=== PATIENT | female | born 1940 | race Caucasian/White ===

== ENCOUNTER 2025-05-26 08:26 | Outpatient (AMB) | payer MEDICARE, SELFPAY ==
--- OUTSIDE RECORDS SUMMARY | 2025-05-26 08:30 | XMS_ITS | Clinical Summary ---
Author Organization [facility] ity Address [address] [place] [address] Care Team Providers Care Cheesemaker Helper Name Role Phone Abigail Tobar MD Primary Care Provider [phone] Social History Tobacco Use Types Packs/Day Years Used Date Smoking Tobacco: Never Smokeless Tobacco: Never Alcohol Use Standard Drinks/Week Comments Yes 1 (1 standard drink = 0.6 oz pur e alcohol) Comments Unknown Sex and Gender Information Value Date Recorded Sex Assigned at Not on file Legal Sex Female 5:25 PM EST Gender Identity Not on file Sexual Orientation Not on file Obstetrics History Last Filed Vital Signs Vital Sign Reading Time Taken Comments Blood Pressure 112/64 09/11/2022 1:25 PM EDT Sit ting L Arm Pulse 74 09/11/2022 1:25 PM EDT Temperature - - Respiratory Rate - - Oxygen Saturation - - Inhaled Oxygen Concentration - - Weight 61.2 kg (135 lb) 04/21/2024 9:23 AM EDT Height 162.6 cm (5' 4 ) 04/21/2024 9:23 AM EDT Body Mass Index 23.17 04/21/2024 9:23 AM EDT Plan of Treatment Health Maintenance Due Date Last Done Comments DTaP,Tdap,and Td Vaccines (1 - Tdap) 1959 Hepatitis A Vaccines (1 of 2 - Risk 2-dose series) 1957 Pneumococcal Vaccine: 50+ Ye ars (1 of 1 - PCV) 1988 Zoster Vaccines (1 of 2) 1988 Hepatitis B Vaccines (1 of 3 - Risk 3-dose series) 1998 RSV Immunization Adult Patie nts (1 - 1-dose 75+ series) 2013 Cholesterol Screening (Lipid Panel) 10/19/2022 Falls Risk Assessment 10/19/2022 Osteoporosis Screening (Bone Density Screening) 10/19/2022 Social Influencers of Health Screening 10/19/2022 COVID-19 Vaccine (1 - 2023-2 5 season) 2024 Depression Screening 11/10/2024 Influenza Vaccine (#1) 2025 HIB Vaccines Aged Out No longer eligi ble based on patient's age to complete this topic HPV Vaccines Aged Out No longer eligi ble based on patient's age to complete this topic IPV Vaccines Aged Out No longer eligi ble based on patient's age to complete this topic MMR Vaccines Aged Out No longer eligi ble based on patient's age to complete this topic Meningococcal ACWY Vaccine Aged Out N o longer eligible based on patient's age to complete this topic Meningococcal B Vaccine Aged Out No l onger eligible based on patient's age to complete this topic RSV Immunization Patients Un glynn 20 months Aged Out No longer eligible b ased on patient's age to complete this topic Varicella Vaccines Aged Out No longer eligible based on patient's age to complete this topic Care Teams Cheesemaker Helper Relationship Specialty Start Date End Date Abigail Tobar MD [address] [place] [address] [place] [address] PCP - General 06/27/22
--- NOTE | 2025-05-26 08:40 | MHC.OFFVIS ---
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 [facility] Medical History (Updated 05/26/25 @ 08:48 by Paula Guerrier MD) Migraine H/O alcohol abuse Cerebral vascular disease Intracranial carotid stenosis, right Basilar artery stenosis Hypertension Dupuytrens contracture Stroke Insomnia RLS (restless legs syndrome) Review of Systems Const Details: Constitutional:?No fever, chills, fatigue, weight loss, or night sweats. HEENT:?No headache, vision changes, hearing loss, nasal congestion, sore throat. Neurological:?No dizziness, syncope, seizures, numbness, tingling, weakness, tremors, memory loss. Psychiatric:?No anxiety, depression, mood swings, sleep disturbance, or hallucinations. Endocrine:?No heat/cold intolerance, polydipsia, polyuria, or hair/skin changes. Hematologic/Lymphatic:?No easy bruising, bleeding, or lymphadenopathy. Integumentary (Skin):?No rash, lesions, itching, or color changes. ? Physical Exam Neuro Other: Mental Status: Alert and oriented to person, place, and time. Normal attention. Normal spontaneous speech, fluency, and comprehension. No obvious issues with mood and memory. Affect is appropriate. Cranial Nerves: CN II: Visual velasco full to confrontation, visual acuity intact. CN III, IV, : Pupils equal, round, reactive to light and accommodation. Extraocular movements are normal. CN V: Facial sensation is normal. CN VII: Facial movements symmetrical. CN VIII: Hearing intact to bedside conversation is normal. CN IX, X: Palate elevates symmetrically. CN XI: Shoulder shrug and head turn symmetrical. CN XII: Tongue midline without atrophy or fasciculations. Extrapyramidal: Full facial expressions and blinking. No rigidity. Movements are appropriate with no tremor or abnormality. Speech: Normal; no dysarthria or tremor. Assessment & Plan Assessment & Plan (1) Basilar artery stenosis: Comment: MRI brain WO at [facility] in Dec 2021: R pontine community liaison officer acute to subacute infarct, mild MVD CT brain WO at [facility] in Dec 2021: mild to mod diff cerebral and cerebellar atrophy CTA brain and neck at [facility] in Dec 2021: Severe stenosis R intracranial ICA, mod to severe stenosis of mid to distal basilar, no extracranial stenosis Echocardiogram at [facility] in Jan 2022: OK EKG at [facility] in Dec 2021: NSR Code(s): I65.1 - Occlusion and stenosis of basilar artery Category: Medical (2) Cerebral microvascular disease: Code(s): I67.89 - Other cerebrovascular disease Category: Medical (3) Intracranial carotid stenosis, right: Code(s): I65.21 - Occlusion and stenosis of right carotid artery Category: Medical (4) Insomnia: Code(s): G47.00 - Insomnia, unspecified Category: Medical Qualifiers: Insomnia type: psychophysiologic Qualified Code(s): F51.04 - Psychophysiologic insomnia Plan Impression and recommendations: a: Basilar artery and right intra-cranial carotid stenosis: Continue clopidogrel, blood pressure control, and statin. b: Insomnia: PRN amitryptiline 25mg at night c: Migraine headaches: PRN Fiorecet Coding Level of Care Code Est Pt Level 4 (10694) Diagnoses Basilar artery stenosis I65.1 Cerebral microvascular disease I67.89 Intracranial carotid stenosis, right I65.21 Psychophysiological insomnia F51.04 Insomnia type: psychophysiologic
== END 2025-05-26 08:53 | disposition home or self-care (01) ==
LOC: HO.HSM 08:26
PROVIDERS: PCP Family Medicine; Visit Provider Psychiatry & Neurology Neurology
DX: I65.1 Occlusion and stenosis of basilar artery (principal); I67.89 Other cerebrovascular disease; I65.21 Occlusion and stenosis of right carotid artery; F51.04 Psychophysiologic insomnia
CPT/HCPCS: 99214

== ENCOUNTER → 2025-05-26 08:26 | Outpatient (BNVA) | payer MEDICARE, SELFPAY | PROVIDERS: PCP Family Medicine; Visit Provider Psychiatry & Neurology Neurology | DX: I65.1 Occlusion and stenosis of basilar artery (principal); I67.89 Other cerebrovascular disease; I65.21 Occlusion and stenosis of right carotid artery; F51.04 Psychophysiologic insomnia | CPT/HCPCS: 99212 ==